=== PATIENT | female | born 1995 | race Caucasian/White ===

== ENCOUNTER → 2018-07-06 12:55 | Outpatient (CLI) | payer OTHER, SELFPAY ==
--- NOTE | 2018-07-06 12:58 | US_ITS ---
US OB transvaginal HISTORY: ITS.REASON: US OB T/V FOR DATES ORDERING PHYSICIAN: Lev Contreras MD PATIENT AGE: 22 years COMPARISON: None FINDINGS: The uterus is retroverted. An intrauterine gestational sac is present with a pole with a crown-rump length of 1.14cm correlating to gestational age of 7w3d. heart tones are present with an FHR of 146 bpm's. Yolk sac is noted. There is a 2 x 1 cm left corpus luteum cyst. IMPRESSION: There is a live intrauterine gestation with an average ultrasound age of 7 weeks 3 days. Estimated due date by ultrasound is 02/19/2019 The uterus is retroverted
[2018-07-06 15:11] LABS: Basophils % 0.3 % (0.1-2.0); Eosinophils # 0.3 K/mm3 (0.0-0.4); Eosinophils % 2.4 % (0.1-12.0); Hematocrit 43.8 % (37.0-47.0); Hemoglobin 14.2 g/dL (12.2-16.2); Lymphocytes # 3.2 K/mm3 (0.7-4.5); Lymphocytes % 27.7 K/mm3 (10-50); Mean Corpuscular HGB Conc 32.5 g/dL (31.8-35.4); Mean Corpuscular Hemoglobin 31.3 pg (27.0-31.2); Mean Corpuscular Volume 96.4 fl (81-99); Mean Platelet Volume 7.7 fl (7.4-10.4); Monocytes # 0.5 K/mm3 (0.1-1.0); Monocytes % 4.3 % (1.7-9.3); Neutrophils # 7.5 K/mm3 (1.8-7.8); Neutrophils % 65.4 % (37.0-80.0); Platelet Count 417 K/mm3 (142-424); Red Blood Count 4.54 M/mm3 (4.20-5.40); Red Cell Distribution Width 12.6 % (11.5-17.5); White Blood Count 11.4 K/mm3 (4.8-10.8)
[2018-07-13 08:14] LABS: HIV Screen 4th Generation wRfx Non Reactive
[2018-07-13 08:16] LABS: Hepatitis B Surface Antigen Negative
[2018-07-13 08:18] LABS: Hepatitis C Antibody <0.1 s/co ratio; Rapid Plasma Reagin Ab Titer Non Reactive
== END ==
PROVIDERS: Family Provider Family Medicine; PCP Family Medicine; Visit Provider Nurse Practitioner Obstetrics & Gynecology
DX: O26.841 Uterine size-date discrepancy, first trimester (principal); Z34.90 Encounter for supervision of normal pregnancy, unspecified, unspecified trimester
CPT/HCPCS: 36415; 76817; 85025; 86592; 86703; 86762; 86850; 87340; 87380; G0432

== ENCOUNTER → 2018-07-06 14:16 | Outpatient (CLI) | payer OTHER, SELFPAY | PROVIDERS: Family Provider Family Medicine; PCP Family Medicine; Visit Provider Nurse Practitioner Obstetrics & Gynecology | DX: Z34.90 Encounter for supervision of normal pregnancy, unspecified, unspecified trimester (principal) | CPT/HCPCS: 36415; 85025; 86592; 86703; 86762; 86850; 87340; 87380; G0432 ==

== ENCOUNTER → 2018-10-05 08:43 | Outpatient (CLI) | payer OTHER, SELFPAY ==
--- NOTE | 2018-10-05 08:56 | US_ITS ---
US OB /maternal detail: INDICATION: Anatomy exam ITS.REASON: US OB Complete ORDERING PHYSICIAN: Lev Contreras MD PATIENT AGE: 23 years TECHNIQUE: ultrasound transabdominal scanning. COMPARISON: No previous relevant studies. FINDINGS: Single viable intrauterine gestation. Cephalic position. Placenta: ANTERIOR placenta grade 1. There is average amount fluid. The cervix appears satisfactory. Closed and measuring 4 cm in length. Complete survey performed and was unremarkable on the submitted images as in PACS. No discrete anomalies identified on survey imaging by technologist. Active fetus. Three-vessel cord with satisfactory umbilical cord insertion. 4- chamber heart noted. Survey of brain & ventricles unremarkable. Face and neck survey unremarkable. Diaphragm and chest views unremarkable. Abdomen: Both kidneys noted and unremarkable. Stomach noted and satisfactory. Spine: Survey of the spine satisfactory with no anomalies identified nor imaged. Both arms and legs noted. Amniotic Fluid: Adequate. Maternal adnexa: No significant findings. Measurements: Average ultrasound age 21w0d. Gestational Age 20w3d. Estimated due date by ultrasound age 0501/15/2019. Estimated weight 375 grams. BPD = 21w4d OFD = 21w3d HC = 20w5d AC = 21w1d FL = 20w3d Growth Percentile= 64% Heart Rate = 158 Cerebellum = 20w2d Humerus = 20w4d HC/AC is 1.15 (1.09-1.26). CI is 79% (70-86%).. FL/BPD is 65%. FL/AC is 21%. IMPRESSION: There is a single live fetus which is in cephalic presentation. Fetus is active with no anatomic anomalies evident. Average ultrasound age is 21 weeks and 0 days. All parameters correlate. Please see above for detail.
== END ==
PROVIDERS: PCP Family Medicine; Visit Provider Nurse Practitioner Obstetrics & Gynecology
DX: Z36.0 Encounter for antenatal screening for chromosomal anomalies (principal)
CPT/HCPCS: 76811

== ENCOUNTER → 2018-11-24 08:32 | Outpatient (CLI) | payer OTHER, SELFPAY ==
[2018-11-24 09:31] LABS: Glucose,Fasting 62 mg/dL (60-105)
[2018-11-24 11:00] LABS: Glucose 1 Hour 98 mg/dL (74-106)
== END ==
PROVIDERS: Visit Provider Nurse Practitioner Obstetrics & Gynecology
DX: Z34.90 Encounter for supervision of normal pregnancy, unspecified, unspecified trimester (principal)
CPT/HCPCS: 36415; 82951

== ENCOUNTER → 2019-01-14 14:29 | Outpatient (CLI) | payer OTHER, SELFPAY | PROVIDERS: Visit Provider Nurse Practitioner Obstetrics & Gynecology | DX: Z34.90 Encounter for supervision of normal pregnancy, unspecified, unspecified trimester (principal) | CPT/HCPCS: 86403 ==

== ENCOUNTER 2019-02-10 05:40 | Inpatient (IN) | payer OTHER, SELFPAY ==
[2019-02-10] VITALS (7 sets, daily range): BP systolic 108–137; BP diastolic 63–88; PULSE 62–111; RESP 12–18; TEMP 36.6–37.1; O2SAT 99–100; BMI 25.0
[2019-02-10 06:23] LABS: Anion Gap 13.1 mEq/L (5-15); Blood Urea Nitrogen 8 mg/dL (7-18); Calcium 8.4 mg/dL (8.5-10.1); Carbon Dioxide 25 mmol/L (21.0-32.0); Chloride 103 mmol/L (98-107); Creatinine Clearance Estimated 128 mL/min (50-200); Creatinine,Serum 0.68 mg/dL (0.55-1.02); Estimated Glomerular Filt Rate 105 ml/min (>60); GFR (African American) 128 ML/MIN (>60); Glucose 80 mg/dL (74-106); Potassium 3.1 mmoL/L (3.5-5.1); Sodium 138 mmol/L (136-145)
[2019-02-10 06:46] LABS: Basophils % 0.3 % (0.1-2.0); Eosinophils # 0.1 K/mm3 (0.0-0.4); Eosinophils % 1.2 % (0.1-12.0); Hematocrit 43.3 % (37.0-47.0); Hemoglobin 15.2 g/dL (12.2-16.2); Lymphocytes # 2.7 K/mm3 (0.7-4.5); Lymphocytes % 26.1 % (10-50); Mean Corpuscular HGB Conc 35.2 g/dL (31.8-35.4); Mean Corpuscular Hemoglobin 32.8 pg (27.0-31.2); Mean Corpuscular Volume 93.2 fl (81-99); Monocytes # 0.4 K/mm3 (0.1-1.0); Monocytes % 4.3 % (1.7-9.3); Platelet Count 293 K/mm3 (142-424); Red Blood Count 4.65 M/mm3 (4.20-5.40); Red Cell Distribution Width 12.5 % (11.5-17.5); White Blood Count 10.3 K/mm3 (4.8-10.8)
--- NOTE | 2019-02-10 07:04 | HMH.ANESCL ---
[facility] Anesthesia Checklist - Patient Identification Patient Identification: Arm Band, Verbal (Name & ) - Structural Data Admitted From: Home Planned Operative Procedure/s: Consent for Planned Operative Procedure(s) Verified: Yes Verified Documents: Surgical Consent, History and Physical - NPO Status Verified Time NPO: 00:00 - Chart Verification Results Verified: CBC, BMP - Additional verifications Patient : Yes Anesthesia Reactions: No - Airway Assessment C-Spine Mobility Assessed: Yes TMJ Mobility Assessed: Yes Dentition: Good Dentition - Neurological Assessment Level of Consciousness: Awake, Alert, Appropriate, Follows Commands Hx Seizures: No Numbness or tingling in extremities: No - Anesthesia Plan Anesthesia Risk discussed: Yes Anesthesia Plan: Verified ASA Class: II Anesthesia Type: Spinal [facility] History I have reviewed the patient's past medical history: Yes Medical History: Reports:: Asthma, Migraine Denies:: Anxiety, Depression, MRSA, Seizures *Have you ever received a pneumonia vaccine?: No *Have you received a flu vaccine this season?: No Other Surgeries: Yes: Amputation: No Fractures: No - *Social History Smoking Status: Never smoker Alcohol Intake: never Substance Use Type: denies use *Occupational Status:: employed Housing: house *Travel in the last 8 weeks: None - Psychiatric History Pschychiatric History:: Denies:: Anxiety, Depression Family Hx:: No significant family history Para: 1
[2019-02-10 08:01] LABS: Cord Blood PH 7.38 (7.35-7.45)
--- NOTE | 2019-02-10 08:01 | HMH.PHAINT ---
MEDICATION RECONCILIATION COMPLETED ON PATIENT. -DESTINEE ROCKWELL, LOUISED
--- NOTE | 2019-02-10 08:16 | HMH.OPNOTE ---
Date of procedure: 02/10/19 Pre-op Diagnosis:: Term , previous section Post-op Diagnosis:: Term , previous section Procedure performed:: Repeat lower segment transverse section Surgeon:: Lev Contreras MD Ticket Collector(s):: Dr. Azevedo MOBILE THERAPIST:: Shane De La Torre Anesthesia: spinal Estimated blood loss (mL): 800 Clinical Note:: She is a 23-year-old 2 para 1 at 39 weeks gestational age. She had a previous section and as a result of that was offered repeat lower segment transverse section at term. Operative findings:: She delivered a liveborn female child at 7:48 AM on the morning of February 10, 2019. The baby had Apgars of 9 at 1 minute and 9 at 5 minutes. pH was 7.38. Ovaries and tubes appeared normal. Operative note:: She was taken to the operating room where spinal anesthesia was found be adequate. She was prepped and draped in normal sterile fashion in the supine position with a leftward tilt. A Jurado catheter was in the bladder. A Pfannenstiel skin incision was made with knife then carried through to the underlying layer of fascia with cautery. The fascia was opened in the midline with cautery and extended laterally using Muller scissors. Calhoun clamps were applied to the superior aspect of the fascial incision which was tented up and the underlying rectus muscles dissected off using cautery. The Mohinder clamps were then applied to the inferior aspect of the fascial incision which in a similar fashion was tented up and the underlying rectus muscles dissected off using cautery. The rectus muscles were then in the midline, the peritoneum identified, and entered sharply with Metzenbaum scissors. This incision was then extended superiorly and inferiorly with cautery. We had good visualization of the bladder inferiorly. The bladder peritoneum was then opened in the midline and extended laterally using Metzenbaum scissors. A bladder flap was created digitally. Transverse incision was made through the uterine muscle to the amnion. This incision was then extended laterally using fingers traction. The amnion was entered sharply with knife. There was clear amniotic fluid. The 's head was then delivered atraumatically. This was followed by the anterior shoulder and the rest of the 's body atraumatically. The oropharynx and nasopharynx were bulb suctioned. The infant was then handed off to Dr. Boggs who assigned Apgars of 9 at 1 minute and 9 at 5 minutes. We then obtained cord blood as well as cord pH. The pH was 7.38. Using gentle traction on the cord and countertraction on the fundus I was able to easily deliver the placenta intact. It had a normal three-vessel cord. The uterus was then cleared of clots and debris . The uterine incision was then closed using running 0 Vicryl suture in a locked fashion. A second layer of the same suture was used to imbricate the first layer. There was a small amount of bleeding on the left side and a single ghzpcb-es-yjksh Vicryl suture was used her to obtain excellent hemostasis. The bladder peritoneum was then closed using running 2-0 Vicryl suture in a locked fashion. The gutters and cul-de-sac were then cleared of clots and debris . Once again hemostasis was assured. The uterus was then returned to the abdominal cavity. The peritoneum was grasped with Rhona clamps and closed using running 2-0 Vicryl suture. The rectus muscles were then reapproximated using running 0 Vicryl suture. The fascia was closed using running #1 Vicryl suture. The subcutaneous tissues were then irrigated with warm water followed by closure Yobany's fascia using running 2-0 Monocryl suture. The skin was closed with cole. I then cleaned the skin with Hibiclens. Sterile dressings were applied. She tolerated the procedure well and was taken to the recovery room in excellent condition. All sponges minute and needle counts were correct. Estimate a blood loss was
--- NOTE | 2019-02-10 08:26 | P.PN_ITS ---
[facility] Anesthesia Record Part I Intake, IV Amount: 1,800 Estimated blood loss (mL): 800 Urine output (mL): 300 Blood Pressure: 124/74 SaO2: 99 Pulse Rate: 66 Respiratory Rate: 12 Temperature: 97.8 F Patient is:: Awake, Stable Stable to PACU at:: 08:20
--- NOTE | 2019-02-10 08:26 | HMH.ANESII ---
[facility] Anesthesia Record Part II Discharge Time: 08:50 Destination: Obstetric PACU nurse assessment reviewed?: Yes Patient Condition:: Good Anesthesia Complications:: None Swallowing reflex intact?: Yes Cyanosis?: No
--- NOTE | 2019-02-10 08:48 | HMH.PHAVTE ---
[facility] Pharmacy VTE Monitoring - Patient Demographics Admission date: 02/10/19 Report Date: 02/10/19 Time: 08:48 Allergies/Adverse Reactions: Patient Allergies No Known Allergies Allergy (Verified 01/26/19 09:36) Height: 1.6 m Weight: 63.957 kg - VTE Risk Labs: VTE Related Lab Results Hgb 15.2 g/dL (12.2-16.2) 02/10/19 06:00 Hct 43.3 % (37.0-47.0) 02/10/19 06:00 Plt Count 293 K/mm3 (142-424) 02/10/19 06:00 BUN 8 mg/dL (7-18) 02/10/19 06:00 Creatinine 0.68 mg/dL (0.55-1.02) 02/10/19 06:00 Estimated Creat Clear 128 mL/min (50-200) 02/10/19 06:00 - Prophylaxis VTE Prophylaxis Ordered?: Yes Types of VTE Prophylaxis: IPCS Thigh High Location of Applied Device: Bilateral Lower Extremeties - VTE Diagnosis Confirmed Treatment or plan recommended: Continue Current Treatment
--- NOTE | 2019-02-10 09:13 | PC.NURSE ---
0830-Pt c/o nausea. Cool air ninfa hugger given to pt & cool rag applied to pt forehead. 0835-O2 2LNC applied for comfort. 0840-warm blanket applied to shoulder, pt states discomfort is improving. Pt also states nausea is improving.
[2019-02-10 12:58] LABS: Microscopic,Cath URINE MICROSCOPIC (MICROSCOPIC)
[2019-02-10 13:00] LABS: Appearance,Urine/Cath CLEAR (Clear); Bilirubin,Cath Negative (Negative); Blood, Urine/Cath Negative (Negative); Color,Urine/Cath YELLOW (Yellow); Glucose,Urine/Cath (UA) Negative (Negative); Ketones,Urine/Cath Negative (Negative); Leukocyte Esterase,Cath Negative (Negative); Nitrate,Cath Negative (Negative); PH,Urine/Cath 7.5 (5.0-8.5); Protein,Urine/Cath Negative (Negative); Urobilinogen,Cath 0.2 EU/dl (0.2)
[2019-02-10 13:06] LABS: Bacteria,Urine/Cath TRACE /lpf
[2019-02-11 07:02] LABS: Hematocrit 39.1 % (37.0-47.0); Hemoglobin 13.5 g/dL (12.2-16.2)
--- NOTE | 2019-02-11 14:38 | HMH.ACPN2 ---
Internal Medicine - PN: Subj *Date: 02/11/19 *Time: 14:38 Interval history: POD #1 repeat CS Tolerating regular diet, ambulating and voiding without difficulty Pain control sufficient No complaints Exam Vital signs and Labs for Last 24 Hours: Temp Pulse Resp BP Pulse Ox 98.7 F 79 18 108/63 L 99 02/10/19 19:49 02/10/19 19:49 02/10/19 19:49 02/10/19 19:49 02/10/19 19:49 Laboratory Results - last 24 hr 02/11/19 06:45: Hgb 13.5, Hct 39.1 I & O for Last 24 hours: Intake & Output 02/09/19 02/10/19 02/11/19 02/12/19 11:59 11:59 11:59 11:59 Intake Total 1800 / 1800 Output Total 25 / 850 2024 / 2024 Balance 1775 / 950 -2024 / -2024 Weight 141 lb Narrative: CONSTITUTIONAL: no acute distress HEENT: mucous membranes moist PULMONARY: breathing unlabored without audible wheezes CV: no tachycardia or visible JVD; normal LE peripheral pulses ABD: soft, ND; appropriately tender but no rebound/guarding : fundus firm at/below umbilicus SKIN: incision well approximated with no drainage, erythema or induration EXT: 1+ edema LEs NEURO: alert/oriented, no altered mental status PSYCH: appropriate mood and demeanor without anxiety/depression Assessment and Plan (1) delivery delivered Current visit: Yes Status: Acute Category: Medical Code(s): O82 - Encounter for delivery without indication - Assessment and plan all Dx Assessment and Plan for all problems:: POD #2 Continue routine care Advance as tolerated
--- NOTE | 2019-02-12 14:10 | HMH.DCSUM ---
General - General Admission date:: 02/10/19 Discharge date: 02/12/19 HPI HPI: POD #2 RLTCS No complaints Tolerating regular diet, ambulating and voiding without difficulty Desires discharge home today Hospital Course Hospital Course: see HPI Objective Vital signs: Temp Pulse Resp BP Pulse Ox 98.7 F 79 18 108/63 L 99 02/10/19 19:49 02/10/19 19:49 02/10/19 19:49 02/10/19 19:49 02/10/19 19:49 Narrative: CONSTITUTIONAL: no acute distress HEENT: mucous membranes moist PULMONARY: breathing unlabored without audible wheezes CV: no tachycardia or visible JVD; normal LE peripheral pulses ABD: soft, ND; appropriately tender but no rebound/guarding : fundus firm at/below umbilicus SKIN: incision well approximated with no drainage, erythema or induration EXT: 1+ edema LEs NEURO: alert/oriented, no altered mental status PSYCH: appropriate mood and demeanor without anxiety/depression DS: Diagnosis - Discharge Diagnosis (1) delivery delivered Status: Acute Discharge Plan - Patient Discharge Instructions ACTIVITY: Continue current activity, No heavy lifting DIET: regular diet Additional Instructions: NO DRIVING FOR 2 WEEKS NO HEAVY LIFTING OR STRENUOUS ACTIVITY NOTHING IN VAGINA FOR WEEKS FOLLOW-UP WITH DR. BRAND ON 02/28/2019 @ 9:45 Patient Instructions: How to Care for a Surgical Wound, Depression, [facility] Post Discharge Instructions - Follow up Plan Disposition: Home, Self-Jail Medications: Home Medications Medication Instructions Recorded Confirmed Type 1 tab PO DAILY 07/01/18 02/10/19 History vitamin,calcium,hhjjfbto-jxum-cmlcp acid tablet Ferrous Sulfate 325 mg PO DAILY 02/10/19 02/10/19 History Ibuprofen [Motrin 400mg 800 mg PO Q6HP PRN #30 tab 02/12/19 Rx tablet] Oxycodone HCl [OxyIR 5mg tablet] 10 mg PO Q4HP PRN #30 tab 02/12/19 Rx Prescriptions/Medication Reconciliation: New Oxycodone HCl [OxyIR 5mg tablet] 10 mg PO Q4HP PRN #30 tab PRN Reason: Moderate To Severe Pain Ibuprofen [Motrin 400mg tablet] 800 mg PO Q6HP PRN #30 tab PRN Reason: Mild To Moderate Pain Continued vitamin,calcium,anlztjcm-varm-sytdj acid tablet 1 tab PO DAILY Ferrous Sulfate 325 mg PO DAILY
--- NOTE | 2019-02-12 14:14 | P.DS_ITS ---
General - General Admission date:: 02/10/19 Discharge date: 02/12/19 HPI HPI: POD #2 RLTCS No complaints Tolerating regular diet, ambulating and voiding without difficulty Desires discharge home today Hospital Course Hospital Course: see HPI Objective Vital signs: Temp Pulse Resp BP Pulse Ox 98.7 F 79 18 108/63 L 99 02/10/19 19:49 02/10/19 19:49 02/10/19 19:49 02/10/19 19:49 02/10/19 19:49 Narrative: CONSTITUTIONAL: no acute distress HEENT: mucous membranes moist PULMONARY: breathing unlabored without audible wheezes CV: no tachycardia or visible JVD; normal LE peripheral pulses ABD: soft, ND; appropriately tender but no rebound/guarding : fundus firm at/below umbilicus SKIN: incision well approximated with no drainage, erythema or induration EXT: 1+ edema LEs NEURO: alert/oriented, no altered mental status PSYCH: appropriate mood and demeanor without anxiety/depression DS: Diagnosis - Discharge Diagnosis (1) delivery delivered Status: Acute Discharge Plan - Patient Discharge Instructions ACTIVITY: Continue current activity, No heavy lifting DIET: regular diet Additional Instructions: NO DRIVING FOR 2 WEEKS NO HEAVY LIFTING OR STRENUOUS ACTIVITY NOTHING IN VAGINA FOR WEEKS FOLLOW-UP WITH DR. BRAND ON 02/28/2019 @ 9:45 Patient Instructions: How to Care for a Surgical Wound, Depression, [facility] Post Discharge Instructions - Follow up Plan Disposition: Home, Self-[facility] Medications: Home Medications Medication Instructions Recorded Confirmed Type 1 tab PO DAILY 07/01/18 02/10/19 History vitamin,calcium,gxauborm-qncg-uebao acid tablet Ferrous Sulfate 325 mg PO DAILY 02/10/19 02/10/19 History Ibuprofen [Motrin 400mg 800 mg PO Q6HP PRN #30 tab 02/12/19 Rx tablet] Oxycodone HCl [OxyIR 5mg tablet] 10 mg PO Q4HP PRN #30 tab 02/12/19 Rx Prescriptions/Medication Reconciliation: New Oxycodone HCl [OxyIR 5mg tablet] 10 mg PO Q4HP PRN #30 tab PRN Reason: Moderate To Severe Pain Ibuprofen [Motrin 400mg tablet] 800 mg PO Q6HP PRN #30 tab PRN Reason: Mild To Moderate Pain Continued vitamin,calcium,lrgvnklr-ownv-ynllj acid tablet 1 tab PO DAILY Ferrous Sulfate 325 mg PO DAILY
== END 2019-02-12 17:50 | disposition home or self-care (01) | DRG 788 ==
PROVIDERS: Admitting Provider Obstetrics & Gynecology; PCP Family Medicine; Visit Provider Nurse Practitioner Obstetrics & Gynecology
PROC: 10D00Z1 Extraction of Products of Conception, Low, Open Approach (ICD-10-PCS; CPT 59514; principal; 2019-02-10 07:30)
DX: O34.211 Maternal care for low transverse scar from previous cesarean delivery (principal); Z3A.39 39 weeks gestation of pregnancy; Z37.0 Single live birth; N85.8 Other specified noninflammatory disorders of uterus
CPT/HCPCS: 59514; 36415; 59025; 80048; 81001; 82800; 85014; 85018; 85025; 86850